=== PATIENT | male | born 2000 | race Caucasian/White ===

== ENCOUNTER 2019-06-05 13:15 | Emergency (ER) | payer OTHER, SELFPAY ==
[2019-06-05 13:17] VITALS: BP 151/98; PULSE 96; RESP 17; TEMP 37.2; O2SAT 96; BMI 25.8
--- NOTE | 2019-06-05 16:09 | ED.VIS.GEN ---
History of Present Illness Chief Complaint: Laceration Informant: Patient Onset: Today Narrative: Patient sustained a laceration to his leg last night around 0200 hours. His tetanus was 4 years ago. He believes he did not need stitches so he did not come in however after discussing with his mother he came in. Past Medical History - Allergies and Home Meds Allergies/Adverse Reactions: Allergies No Known Allergies Allergy (Verified 06/05/19 13:17) Primary Care Physician: Care Physician,No Primary [Primary Care Provider] - Smoking Status: Never smoker Review of Systems General: Denies: Chills, Fever, Sweats Eyes: Denies: Visual changes - bilaterally, Diplopia ENT: Denies: Rhinorrhea, Sore throat Cardiovascular: Denies: Chest pain, Palpitations Respiratory: Denies: Dyspnea, Cough, Dyspnea on exertion Gastrointestinal: Denies: Abdominal pain, Nausea, Vomiting, Diarrhea, Melena, Hematochezia Genitourinary: Denies: Dysuria, Hematuria, Frequency Musculoskeletal: Denies: Back pain, Extremity Pain Skin: Denies: Rash, Wounds Neurological: Denies: Headache, Weakness, Numbness Physical Exam Vital Signs/Narrative: Vital Signs Temp Pulse Resp BP Pulse Ox 06/05/19 13:17 99.0 F 96 17 151/98 H 96 Inital Vital Signs reviewed: Yes General: Well nourished, Well developed, No Acute Distress Head: Normocephalic, Atraumatic Eyes: Perrl, EOMI ENT: Moist mucous membranes, No rhinorrhea Neck: Supple, Nontender Cardiovascular: Regular rate, Regular rhythm, No murmurs Respiratory: No distress, CTA bilaterally, Chest nontender Abdomen: Soft, Nontender, Nondistended, Normal bowel sounds Back: Nontender, Normal Inspection Extremities: Nontender, No edema, - - There is a 4 cm linear laceration of the anterior aspect of the right mid thigh there is no active bleeding Skin: Normal color, No rash Neurological: Alert, Oriented x3, Cranial nerves II-XII grossly intact, Normal Strength, Normal Sensation Psychological: Normal affect, Normal Mood Diagnostic/Tx/Re-eval - Medical Decision Making Stitches will need to be removed in 10 days. Wound care discussed with patient who notes understanding of plan. Procedures - Lacerations No standard instances Length: 4 ft Depth: Sub Q Shape: Linear Prep: Sterile Conditions, Shure-Clens Laceration repair: Lidocaine, Local Irrigated (ml): 200 Number of Sutures/[place]: 7 Suture Information: - - 3-0 Simple ED Disposition - Plan for ED Patient: Disposition: Home or Assisted Living Diagnosis: Thigh laceration Instructions: LACERATION, All Referrals: Zoe Mendez MD [STAFF PHYSICIAN] - 10 Day for suture removal
[2019-06-05 16:17] VITALS: RESP 16
== END 2019-06-05 16:17 | disposition home or self-care (01) ==
PROVIDERS: Emergency Provider Emergency Medicine
DX: S71.111A Laceration without foreign body, right thigh, initial encounter (principal); X58.XXXA Exposure to other specified factors, initial encounter; Y93.9 Activity, unspecified; Y92.9 Unspecified place or not applicable
CPT/HCPCS: 12002; 99283